=== PATIENT | female | born 1945 | race African-American/Black ===

== ENCOUNTER 2020-03-29 18:43 | Emergency (ER) | payer OTHER ==
--- OUTSIDE RECORDS SUMMARY | 2020-03-29 18:48 | XMS REPORT | Continuity of Care Document ---
:[address] [facility] [place] [place] t Address 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 00:00: [facility] Hyperlipid Hyperlipid Problem Active [facility] emia emia 1-14 da 00:[facility]: [facility] Essential Essential Problem Active [place] hypertensi Hypertensi 1-14 da on on 00:00: [facility] Diverticul Diverticul Problem Active [facility] itis itis 1-14 da 00:00: [facility] Allergies, Adverse Reactions, Alerts Allergy Allergy Status Severity Reaction(s) Onset Inactive Treating Comm ents Source Name Type Date Date Clinician nitrogly DA Active U Unknown [facility] cerin 1- 00:00: 00 No Known [facility] Allergie 00:00: s 00 Social History Smoking Status Start Date Stop Date Source Former Smoker [facility] Medications Ordered Filled Start Stop Current Ordering Indication Dosage Frequency Signature Comments Components Source Medication Medication Date Date Medication? Clinician (SIG) Name Name Protonix 20 Protonix 20 No 1 Q1D Protonix [place] mg mg 20 mg da tablet,krystal tablet,krystal tablet,del [facility] yed release yed release ayed a l Take 1 Take 1 release Health tablet tablet Take 1 Outreac every day every day tablet h by oral by oral every day Prog stefano route. route. by oral route. Tradjenta 5 Tradjenta 5 No 1 Q1D Tradjenta [place] mg tablet mg tablet 5 mg da Take 1 Take 1 tablet [facility] tablet tablet Take 1 al every day every day tablet Hea lth by oral by oral every day Outr eac route. route. by oral h route. Program amlodipine amlodipine No 1 Q1D amlodipine [place] 10 mg 10 mg 10 mg da tablet Take tablet Take tablet [facility] 1 tablet 1 tablet Take 1 al every day every day tablet Hea lth by oral by oral every day Outr eac route. route. by oral h route. Program clonidine clonidine No 1 BID clonidine [place] HCl 0.3 mg HCl 0.3 mg HCl 0.3 mg da tablet Take tablet Take tablet [facility] 1 tablet 1 tablet Take 1 al twice a day twice a day tablet Health by oral by oral twice a Outrea c route. route. day by h oral Program route. Coreg 25 mg Coreg 25 mg No 1 BID Coreg 25 [place] tablet Take tablet Take mg tablet da 1 tablet 1 tablet Take 1 [facility] twice a day twice a day tablet al by oral by oral twice a Health route. route. day by Outreac oral h route. Program hydralazine hydralazine No 1 BID hydralazin [place] 50 mg 50 mg e 50 mg da tablet Take tablet Take tablet [facility] 1 tablet 1 tablet Take 1 al twice a day twice a day tablet Health by oral by oral twice a Outrea c route. route. day by h oral Program route. losartan losartan No 1 Q1D losartan [place] 100 mg 100 mg 100 mg da tablet Take tablet Take tablet [facility] 1 tablet 1 tablet Take 1 al every day every day tablet Hea lth by oral by oral every day Outr eac route. route. by oral h route. 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 Monitor Temp Source 2020-03-16 11:30:21 oral 02 Sat by Pulse 2020-03-16 11:30:21 97 /min Oximetry Body Mass Index 2020-03-16 11:30:21 36.0 Height 2020-03-16 11:30:21 170.18\S\67 Pulse Rate 2020-03-16 11:30:21 84 /min Pulse Strength 2020-03-16 11:30:21 Normal /min Pulse Assessment 2020-03-16 11:30:21 Palpation /min Method Respiratory Rate 2020-03-16 11:30:21 19 /min Respiratory Depth 2020-03-16 11:30:21 Normal /min Respiratory Effort 2020-03-16 11:30:21 Spontaneous /min Respiratory Pattern 2020-03-16 11:30:21 Normal /min Temperature 2020-03-16 11:30:21 37.2\S\98.9 Weight 2020-03-16 11:30:21 083183\S\3680.132 Weight Measurement 2020-03-16 11:30:21 [facility] Initial DRG Weight: 2020-03-16 11:30:21 0.7385 Working DRG Weight: 2020-03-16 11:30:21 0.7385 UM Templates 2020-03-16 11:30:21 Y Utilized Initial DRG Weight: 2020-03-12 06:52:07 0.7385 Working DRG Weight: 2020-03-12 06:52:07 0.7385 UM Templates 2020-03-12 06:52:07 Y Utilized Have you Lost Weight 2020-03-12 06:52:07 No Without Trying in the Past 6 Months? Monitor Temp Source 2020-03-12 06:52:07 oral 02 Sat by Pulse 2020-03-12 06:52:07 97 /min Oximetry Body Mass Index 2020-03-12 06:52:07 36.0 Height 2020-03-12 06:52:07 170.18\S\67 Pulse Rate 2020-03-12 06:52:07 84 /min Pulse Strength 2020-03-12 06:52:07 Normal /min Pulse Assessment 2020-03-12 06:52:07 Palpation /min Method Respiratory Rate 2020-03-12 06:52:07 19 /min Respiratory Depth 2020-03-12 06:52:07 Normal /min Respiratory Effort 2020-03-12 06:52:07 Spontaneous /min Respiratory Pattern 2020-03-12 06:52:07 Normal /min Temperature 2020-03-12 06:52:07 37.2\S\98.9 Weight 2020-03-12 06:52:07 785258\S\3680.132 Weight Measurement 2020-03-12 06:52:07 Built in Bedscale Method Respiratory Rate 2020-03-08 09:55:22 19 /min Respiratory Depth 2020-03-08 09:55:22 Normal /min Respiratory Effort 2020-03-08 09:55:22 Spontaneous /min Respiratory Pattern 2020-03-08 09:55:22 Normal /min Temperature 2020-03-08 09:55:22 37.2\S\98.9 Weight 2020-03-08 09:55:22 923280\S\3680.132 Weight Measurement 2020-03-08 09:55:22 Built in Bedscale Method Initial DRG Weight: 2020-03-08 09:55:22 0.7385 Working DRG Weight: 2020-03-08 09:55:22 0.7385 Have you Lost Weight 2020-03-08 09:55:22 No Without Trying in the Past 6 Months? Monitor Temp Source 2020-03-08 09:55:22 oral 02 Sat by Pulse 2020-03-08 09:55:22 97 /min Oximetry Body Mass Index 2020-03-08 09:55:22 36.0 Height 2020-03-08 09:55:22 170.18\S\67 Pulse Rate 2020-03-08 09:55:22 84 /min Pulse Strength 2020-03-08 09:55:22 Normal /min Pulse Assessment 2020-03-08 09:55:22 Palpation /min Method Initial DRG Weight: 2020-03-07 11:54:07 0.7385 Working DRG Weight: 2020-03-07 11:54:07 0.7385 Have you Lost Weight 2020-03-07 11:54:07 No Without Trying in the Past 6 Months? Monitor Temp Source 2020-03-07 11:54:07 oral 02 Sat by Pulse 2020-03-07 11:54:07 97 /min Oximetry Body Mass Index 2020-03-07 11:54:07 36.0 Height 2020-03-07 11:54:07 170.18\S\67 Pulse Rate 2020-03-07 11:54:07 84 /min Pulse Strength 2020-03-07 11:54:07 Normal /min Pulse Assessment 2020-03-07 11:54:07 Palpation /min Method Respiratory Rate 2020-03-07 11:54:07 19 /min Respiratory Depth 2020-03-07 11:54:07 Normal /min Respiratory Effort 2020-03-07 11:54:07 Spontaneous /min Respiratory Pattern 2020-03-07 11:54:07 Normal /min Temperature 2020-03-07 11:54:07 37.2\S\98.9 Weight 2020-03-07 11:54:07 733858\S\3680.132 Weight Measurement 2020-03-07 11:54:07 Built in Bedscale Method Initial DRG Weight: 2020-03-06 12:24:43 0.7385 Working DRG Weight: 2020-03-06 12:24:43 0.7385 Have you Lost Weight 2020-03-06 12:24:43 No Without Trying in the Past 6 Months? Monitor Temp Source 2020-03-06 12:24:43 oral 02 Sat by Pulse 2020-03-06 12:24:43 97 /min Oximetry Body Mass Index 2020-03-06 12:24:43 36.0 Height 2020-03-06 12:24:43 170.18\S\67 Pulse Rate 2020-03-06 12:24:43 84 /min Pulse Strength 2020-03-06 12:24:43 Normal /min Pulse Assessment 2020-03-06 12:24:43 Palpation /min Method Respiratory Rate 2020-03-06 12:24:43 19 /min Respiratory Depth 2020-03-06 12:24:43 Normal /min Respiratory Effort 2020-03-06 12:24:43 Spontaneous /min Respiratory Pattern 2020-03-06 12:24:43 Normal /min Temperature 2020-03-06 12:24:43 37.2\S\98.9 Weight 2020-03-06 12:24:43 197495\S\3680.132 Weight Measurement 2020-03-06 12:24:43 Built in Bedscale Method Initial DRG Weight: 2020-03-06 11:22:02 0.7385 Working DRG Weight: 2020-03-06 11:22:02 0.7385 Have you Lost Weight 2020-03-06 11:22:02 No Without Trying in the Past 6 Months? Monitor Temp Source 2020-03-06 11:22:02 oral 02 Sat by Pulse 2020-03-06 11:22:02 97 /min Oximetry Body Mass Index 2020-03-06 11:22:02 36.0 Height 2020-03-06 11:22:02 170.18\S\67 Pulse Rate 2020-03-06 11:22:02 84 /min Pulse Strength 2020-03-06 11:22:02 Normal /min Pulse Assessment 2020-03-06 11:22:02 Palpation /min Method Respiratory Rate 2020-03-06 11:22:02 19 /min Respiratory Depth 2020-03-06 11:22:02 Normal /min Respiratory Effort 2020-03-06 11:22:02 Spontaneous /min Respiratory Pattern 2020-03-06 11:22:02 Normal /min Temperature 2020-03-06 11:22:02 37.2\S\98.9 Weight 2020-03-06 11:22:02 662654\S\3680.132 Weight Measurement 2020-03-06 11:22:02 Built in Bedscale Method Have you Lost Weight 2020-03-06 01:10:14 No Without Trying in the Past 6 Months? 02 Sat by Pulse 2020-03-06 01:10:14 99 /min Oximetry Body Mass Index 2020-03-06 01:10:14 36.0 Height 2020-03-06 01:10:14 170.18\S\67 Pulse Rate 2020-03-06 01:10:14 93 /min Pulse Strength 2020-03-06 01:10:14 Normal /min Pulse Assessment 2020-03-06 01:10:14 Palpation /min Method Respiratory Rate 2020-03-06 01:10:14 17 /min Respiratory Effort 2020-03-06 01:10:14 Spontaneous /min Temperature 2020-03-06 01:10:14 37.0\S\98.6 Weight 2020-03-06 01:10:14 268089\S\3680.132 Weight Measurement 2020-03-06 01:10:14 Built in Bedscale Method 02 Sat by Pulse 2020-03-05 17:49:50 93 /min Oximetry Body Mass Index 2020-03-05 17:49:50 36.0 Height 2020-03-05 17:49:50 170.18\S\67 Pulse Rate 2020-03-05 17:49:50 89 /min Pulse Strength 2020-03-05 17:49:50 Normal /min Pulse Assessment 2020-03-05 17:49:50 Palpation /min Method Respiratory Rate 2020-03-05 17:49:50 17 /min Weight 2020-03-05 17:49:50 853487.245\S\3680 02 Sat by Pulse 2020-03-05 17:17:39 93 /min Oximetry Body Mass Index 2020-03-05 17:17:39 36.0 Height 2020-03-05 17:17:39 170.18\S\67 Pulse Rate 2020-03-05 17:17:39 89 /min Pulse Strength 2020-03-05 17:17:39 Normal /min Pulse Assessment 2020-03-05 17:17:39 Palpation /min Method Respiratory Rate 2020-03-05 17:17:39 17 /min Weight 2020-03-05 17:17:39 136905.245\S\3680 02 Sat by Pulse 2020-03-05 17:15:36 93 /min Oximetry Body Mass Index 2020-03-05 17:15:36 36.0 Height 2020-03-05 17:15:36 170.18\S\67 Pulse Rate 2020-03-05 17:15:36 89 /min Pulse Strength 2020-03-05 17:15:36 Normal /min Pulse Assessment 2020-03-05 17:15:36 Palpation /min Method Respiratory Rate 2020-03-05 17:15:36 17 /min Weight 2020-03-05 17:15:36 030107.245\S\3680 WEIGHT 2020-03-05 11:56:00 104.33 kg 02 Sat by Pulse 2020-03-05 09:04:08 97 /min Oximetry Body Mass Index 2020-03-05 09:04:08 36.0 Height 2020-03-05 09:04:08 170.18\S\67 Pulse Rate 2020-03-05 09:04:08 74 /min Respiratory Rate 2020-03-05 09:04:08 18 /min Weight 2020-03-05 09:04:08 061798.245\S\3680 Body Mass Index 2020-03-05 07:04:17 36.0 Height 2020-03-05 07:04:17 170.18\S\67 Weight 2020-03-05 07:04:17 347431.245\S\3680 Body Mass Index 2020-03-05 06:59:02 36.0 Height 2020-03-05 06:59:02 170.18\S\67 Weight 2020-03-05 06:59:02 496238.245\S\3680 Body Mass Index 2020-03-05 06:53:56 36.0 Height 2020-03-05 06:53:56 170.18\S\67 Weight 2020-03-05 06:53:56 145879.245\S\3680 Body Mass Index 2020-03-04 16:48:40 36.0 Height 2020-03-04 16:48:40 170.18\S\67 Weight 2020-03-04 16:48:40 316088.245\S\3680 Body Mass Index 2020-03-04 16:48:09 36.0 Height 2020-03-04 16:48:09 170.18\S\67 Weight 2020-03-04 16:48:09 394644.245\S\3680 Body Mass Index 2020-03-04 13:35:43 36.0 Height 2020-03-04 13:35:43 170.18\S\67 Weight 2020-03-04 13:35:43 855679.245\S\3680 Body Mass Index 2020-03-04 12:37:58 36.0 Height 2020-03-04 12:37:58 170.18\S\67 Weight 2020-03-04 12:37:58 680131.245\S\3680 WEIGHT 2020-03-04 12:37:00 104.844483 kg HEIGHT 2020-03-04 12:37:00 170.18 cm Procedures Procedure Date / Time Performed Performing Clinician [facility] e unlisted imaging order 2020-02-19 00:00:00 [place] [facility] US, abdomen 2020-02-19 00:00:00 [place] [facility] Back Surgery 1998-02-05 00:00:00 [place] [facility] Plan of Care Planned Activity Planned Date Details Comments Source Diagnostic Test 2020-02-19 bacterial vaginosis [place] [facility] P[facility] 00:00:00 + vaginitis panel, Health [facility] [place] vaginal [code = Program bacterial vaginosis + vaginitis panel, vaginal] Diagnostic Test 2020-02-19 culture, urine [place] [facility] P[facility] 00:00:00 [code = culture, Health Outr each urine] Program Encounters Start End Encounter Admission Attending Care Care Encounter Source Date/Time Date/Time Type Type Clinicians Facility Department ID 2020-03-02 2020-03-02 Emergency E KRYSTIN [facility] [id number] [facility] 17:48:00 19:10:00 [facility] 2020-03-02 2020-03-02 Outpatient E CHIANG, MARCIE [facility] [id number] [facility] 09:32:00 14:00:00 [facility] [place] 2020-02-19 2020-02-19 Ana SALEH [place] - [id number] Telma fuller 00:00:00 00:00:00 Ana María Culver, [facility]: [address] THERESE al Parmjite F N, CMA [facility] [phone] Stephie garcia , Ph. 2020-02-17 2020-02-17 Outpatient E ALICIA TATUM [facility] [id number] [facility] 10:37:00 13:46:00 [facility] [place] 2019-12-17 2019-12-19 Outpatient E HAILY [facility] TELE [id number] [facility] 15:09:00 11:33:00 [facility] 2018-11-27 2018-12-01 Inpatient Satish JOHANSEN [facility] [id number] [facility] 16:43:00 15:30:00 [facility] Results Test Description Test Time Test Comments Results Result Comments Source TROPONIN I 2020-03-02 18:48:00 Test Item Value Reference Range Interpretation Comme nts TROPONIN I (test code = A84) 0.029 ng/mL 0.000-0.045 URINALYSIS W/O MICROSCOPICOW2020-03-02 13:07:00 Test Item Value Reference Range Interpretation Comments COLOR (test code = YELLOW YELLOW COLU) CLARITY (test code = CLEAR CLEAR CLA) GLUCOSE UR (test NEGATIVE NEGATIVE code = UA GLUCOSE) BILI UR (test code = NEGATIVE NEGATIVE BILE) KETONES UR (test NEGATIVE NEGATIVE code = AFUA) SP GRAVITY (test 1.015 1.005-1.030 code = SPGR) PH UR (test code = 7.0 4.5-8.0 PH) PROTEIN UR (test NEGATIVE NEGATIVE code = PU) NITRITE UR (test NEGATIVE NEGATIVE code = NITRITE) UROBIL UR (test code 0.2 = GUROQ) UROBIL UR (test code UROBILINOGEN = GUROQC) REFERENCE RANGE 0.2 - 1.0 EU/dL BLOOD UR (test code NEGATIVE NEGATIVE = UA BLOOD) LEUK ES UR (test TRACE NEGATIVE A code = LEUK) GENERAL CHEMISTRY 13 *OW* [id number] 10:37:00 Test Item Value Reference Range Interpretation Comments GLUCOSE (test code = GGUL) 165 mg/dL 73-118 H BUN (test code = GBUN) 26 mg/dL 7-22 H CREATININE (test code = GCRE) 1.1 mg/dL 0.6-1.2 URIC ACID (test code = GUA) 6.3 mg/dL 2.2-6.6 CALCIUM (test code = GCL+) 9.4 mg/dL 8.0-10.3 ALBUMIN (test code = GALB) 4.3 g/dL 3.5-5.5 PROTEIN (test code = GTP) 8.5 g/dL 6.4-8.1 H ALT (test code = GALT) 16 U/L 10-47 AST (test code = JANNET) 24 U/L 11-38 ALK PHOS (test code = GALP) 80 U/L 42-141 BILI TOTAL (test code = GTBIL) 0.5 mg/dL 0.2-1.6 GGT (test code = GGGT) 24 U/L 5-65 AMYLASE (test code = GAMY) 75 U/L 14-97 TROPONIN I OW2020-03-02 10:26:00 Test Item Value Reference Range Interpretation Comments TROPONIN I (test code = A84) <0.050 ng/mL 0.000-0.050 [employer] 8 Panel *OW* [id number] 10:19:00 Test Item Value Reference Range Interpretation Comments GLUCOSE (test code = GGUL) 165 mg/dL 73-118 H BUN (test code = GBUN) 24 mg/dL 7-22 H CREATININE (test code = GCRE) 1.0 mg/dL 0.6-1.2 CK TOTAL (test code = GCK) 81 U/L 30-190 SODIUM (test code = GNA+) 145 mmol/L 128-145 POTASSIUM (test code = GK+) 4.8 mmol/L 3.6-5.1 CHLORIDE (test code = GCL-) 102 mmol/L 98-108 TCO2 (test code = GTC02) 30 mmol/L 18-33 CBC (INCLUDES AUTOMATED DIFFERENTIAL) *2020-03-02 10:01:00 Test Item Value Reference Range Interpretation Comments WBC (test code = WBC) 10.0 10\S\3/uL 4.5-11.0 RBC (test code = RBC) 6.02 10\S\6/uL 3.80-5.80 H HGB (test code = HBG) 15.8 g/dL 12.0-15.5 H HCT (test code = HCT) 49.5 % 35.0-44.0 H MCV (test code = MCV) 82.3 fL 81.0-99.0 MCH (test code = MCH) 26.2 pg 27.0-31.0 L MCHC (test code = MCHC) 31.9 g/dL 32.0-36.0 L RDW (test code = RDW) 14.3 % 11.5-14.5 PLT (test code = PLT) 288 10\S\3/uL 130-400 MPV (test code = OMPV) 8.8 fL 6.2-10.2 NEUTROP # (test code = NE#) 7.0 10\S\3/uL 1.6-8.0 LYMPH # (test code = LY#) 2.0 10\S\3/uL 1.1-3.5 MID # (test code = GMID#) 1.0 10\S\3/uL 0.0-1.1 GRAN % (test code = GRA%) 69.9 % 35.0-73.0 LYMPH % (test code = GLY%) 19.7 % 20.0-55.0 L MID % (test code = GMID%) 10.4 % 0.0-10.0 H BRAIN NATRIURETIC PEPTIDE OW2020-02-17 12:00:00 Test Item Value Reference Range Interpretation Comments BNP (test code = OBNP) 68 pg/mL <=100 GENERAL CHEMISTRY 13 *OW* [id number] 11:44:00 Test Item Value Reference Range Interpretation Comments GLUCOSE (test code = GGUL) 146 mg/dL 73-118 H BUN (test code = GBUN) 16 mg/dL 7-22 CREATININE (test code = GCRE) 0.8 mg/dL 0.6-1.2 URIC ACID (test code = GUA) 5.0 mg/dL 2.2-6.6 CALCIUM (test code = GCL+) 9.3 mg/dL 8.0-10.3 ALBUMIN (test code = GALB) 4.1 g/dL 3.5-5.5 PROTEIN (test code = GTP) 7.2 g/dL 6.4-8.1 ALT (test code = GALT) 14 U/L 10-47 AST (test code = JANNET) 19 U/L 11-38 ALK PHOS (test code = GALP) 78 U/L 42-141 BILI TOTAL (test code = GTBIL) 0.5 mg/dL 0.2-1.6 GGT (test code = GGGT) 20 U/L 5-65 AMYLASE (test code = GAMY) 62 U/L 14-97 TROPONIN I OW2020-02-17 11:40:00 Test Item Value Reference Range Interpretation Comments TROPONIN I (test code = A84) <0.050 ng/mL 0.000-0.050 URINALYSIS W/O MICROSCOPICOW2020-02-17 11:34:00 Test Item Value Reference Range Interpretation Comments COLOR (test code = Yellow YELLOW COLU) CLARITY (test code = Clear CLEAR CLA) GLUCOSE UR (test Negative NEGATIVE code = UA GLUCOSE) BILI UR (test code = Negative NEGATIVE BILE) KETONES UR (test Negative NEGATIVE code = AFUA) SP GRAVITY (test 1.020 1.005-1.030 code = SPGR) PH UR (test code = 6.0 4.5-8.0 PH) PROTEIN UR (test Negative NEGATIVE code = PU) NITRITE UR (test Negative NEGATIVE code = NITRITE) UROBIL UR (test code 0.2 E.U./dL = GUROQ) UROBIL UR (test code UROBILINOGEN = GUROQC) REFERENCE RANGE 0.2 - 1.0 EU/dL BLOOD UR (test code Negative NEGATIVE = UA BLOOD) LEUK ES UR (test Negative NEGATIVE code = LEUK) METLA 12 PANEL *OW* [id number] 11:31:00 Test Item Value Reference Range Interpretation Comments ALBUMIN (test code = GALB) 4.0 g/dL 3.5-5.5 GLUCOSE (test code = GGUL) 143 mg/dL 73-118 H CREATININE (test code = GCRE) 0.7 mg/dL 0.6-1.2 BUN (test code = GBUN) 16 mg/dL 7-22 CALCIUM (test code = GCL+) 9.3 mg/dL 8.0-10.3 SODIUM (test code = GNA+) 142 mmol/L 128-145 POTASSIUM (test code = GK+) 4.6 mmol/L 3.6-5.1 CHLORIDE (test code = GCL-) 103 mmol/L 98-108 TCO2 (test code = GTC02) 28 mmol/L 18-33 MAGNESIUM (test code = GMG+) 2.3 mg/dL 1.6-2.3 LACTATE (test code = STEVIE) 1.77 mmol/L 0.53-2.10 PHOSPHORUS (test code = OPHOS) 3.7 mg/dL 2.2-4.1 CBC (INCLUDES AUTOMATED DIFFERENTIAL) *2020-02-17 11:20:00 Test Item Value Reference Range Interpretation Comments WBC (test code = WBC) 7.8 10\S\3/uL 4.5-11.0 RBC (test code = RBC) 5.72 10\S\6/uL 3.80-5.80 HGB (test code = HBG) 15.0 g/dL 12.0-15.5 HCT (test code = HCT) 46.4 % 35.0-44.0 H MCV (test code = MCV) 81.1 fL 81.0-99.0 MCH (test code = MCH) 26.2 pg 27.0-31.0 L MCHC (test code = MCHC) 32.3 g/dL 32.0-36.0 RDW (test code = RDW) 14.4 % 11.5-14.5 PLT (test code = PLT) 251 10\S\3/uL 130-400 MPV (test code = OMPV) 9.1 fL 6.2-10.2 NEUTROP # (test code = NE#) 5.2 10\S\3/uL 1.6-8.0 LYMPH # (test code = LY#) 1.9 10\S\3/uL 1.1-3.5 MID # (test code = GMID#) 0.6 10\S\3/uL 0.0-1.1 GRAN % (test code = GRA%) 67.3 % 35.0-73.0 LYMPH % (test code = GLY%) 24.4 % 20.0-55.0 MID % (test code = GMID%) 8.3 % 0.0-10.0 BASIC METABOLIC [id number] 05:29:00 Test Item Value Reference Range Interpretation Comments GLUCOSE (test code = 106 mg/dL 75-100 H 06D) SODIUM (test code = 141 mmol/L 136-145 01A) POTASSIUM (test code = 4.0 mmol/L 3.6-5.1 01B) CHLORIDE (test code = 108 mmol/L 98-107 H 04A) CO2 (test code = 02A) 26 mmol/L 22-32 ANION GAP (test code = 11.0 mmol/L ANG) BUN (test code = 05D) 27 mg/dL 7-18 H CREATININE (test code 1.2 mg/dL 0.4-1.1 H = 03E) GFR (test code = GFR) 44 mL/min/1.73m\S\2 >=90 L GFR 51 mL/min/1.73m\S\2 >=90 L (test code = GFRAA) EGFR (test code = eGFR BY CKD-EPI EGFR) CALCULATION IS NOT RECOMMENDED FOR PATIENTS UNDER 18 YEARS OF AGE. BUN/CREA (test code = 22 12-20 H BCR) CALCIUM (test code = 8.6 mg/dL 8.3-9.5 09D) CBC (INCLUDES AUTOMATED DIFFERENTIAL)2019-12-19 05:11:00 Test Item Value Reference Range Interpretation Comments WBC (test code = WBC) 8.3 10\S\3/uL 4.5-11.0 RBC (test code = RBC) 4.95 10\S\6/uL 3.80-5.80 HGB (test code = HBG) 13.3 g/dL 12.0-15.5 HCT (test code = HCT) 40.6 % 35.0-44.0 MCV (test code = MCV) 82.0 fL 81.0-99.0 MCH (test code = MCH) 26.9 pg 27.0-31.0 L MCHC (test code = MCHC) 32.8 g/dL 32.0-36.0 RDW (test code = RDW) 14.9 % 11.5-14.5 H PLT (test code = PLT) 231 10\S\3/uL 130-400 MPV (test code = MPV) 10.3 fL 9.4-12.4 NEUTROP # (test code = NE#) 4.3 10\S\3/uL 1.6-8.0 LYMPH # (test code = LY#) 2.8 10\S\3/uL 1.1-3.5 MONOCYTE # (test code = MO#) 0.8 10\S\3/uL 0.0-1.1 EOSINOPH # (test code = EO#) 0.2 10\S\3/uL 0.0-0.7 BASOPHIL # (test code = BA#) 0.0 10\S\3/uL 0.0-0.3 IG # (test code = IG#) 0.02 10\S\3/uL 0.00-0.06 NRBC # (test code = NRBC#) 0.00 10\S\3/uL 0.00-0.01 NEUTROPH % (test code = NE%) 52.6 % 35.0-73.0 LYMPH % (test code = LY%) 34.3 % 20.0-55.0 MONO % (test code = MO%) 9.9 % 2.5-10.0 EOSINOPH % (test code = EO%) 2.8 % 0.0-5.0 BASOPHIL % (test code = BA%) 0.2 % 0.0-2.0 IG % (test code = IG%) 0.2 % 0.0-0.8 NRBC% (test code = NRBC%) 0.0 % 0.0-0.2 MANDIFF (test code = MDIFF) NO RBC MORPH (test code = RBCMOR) NORMAL GLUCOMETER GLUCOSE- LAB USE [id number] 04:51:00 Test Item Value Reference Range Interpretation Comments GLUCOMETER (test 119 mg/dL 70-100 H CLEANED MET ERDAILY code = GMG) MAINTENANCEMete r ID: [id number] tor: [id number] [facility] GLU[facility]SE- LAB USE [id number] 19:51:00 Test Item Value Reference Range Interpretation Comments GLUCOMETER (test 112 mg/dL 70-100 H CLEANED MET ERDAILY code = GMG) MAINTENANCEMete r ID: [id number] tor: [id number] [facility] GLUCOMET[facility] GLUCOSE- LAB USE [id number] 16:28:00 Test Item Value Reference Range Interpretation Comments GLUCOMETER (test code = 126 mg/dL 70-100 H Mete r ID: GMG) [id number] tor: [id number] [place] [place] GLUCOMETER GLUCOSE- LAB USE [id number] 12:07:00 Test Item Value Reference Range Interpretation Comments GLUCOMETER (test code = 133 mg/dL 70-100 H Mete r ID: GMG) [id number] tor: [id number] [place] GLUCOMETER GLUCOSE- LAB USE [id number] 05:54:00 Test Item Value Reference Range Interpretation Comments GLUCOMETER (test code 160 mg/dL 70-100 H CLEANE D METERMeter ID: = GMG) [id number] tor: [id number] BASIC METABOLIC [id number] 03:32:00 Test Item Value Reference Range Interpretation Comments GLUCOSE (test code = 116 mg/dL 75-100 H 06D) SODIUM (test code = 143 mmol/L 136-145 01A) POTASSIUM (test code = 3.7 mmol/L 3.6-5.1 01B) CHLORIDE (test code = 111 mmol/L 98-107 H 04A) CO2 (test code = 02A) 26 mmol/L 22-32 ANION GAP (test code = 9.7 mmol/L ANG) BUN (test code = 05D) 13 mg/dL 7-18 CREATININE (test code 0.8 mg/dL 0.4-1.1 = 03E) GFR (test code = GFR) 73 mL/min/1.73m\S\2 >=90 L GFR 85 mL/min/1.73m\S\2 >=90 L (test code = GFRAA) EGFR (test code = eGFR BY CKD-EPI EGFR) CALCULATION IS NOT RECOMMENDED FOR PATIENTS UNDER 18 YEARS OF AGE. BUN/CREA (test code = 16 12-20 BCR) CALCIUM (test code = 8.7 mg/dL 8.3-9.5 09D) CARDIAC [id number] 03:26:00 Test Item Value Reference Range Interpretation Comments TROPONIN I (test code = A84) <0.015 ng/mL 0.000-0.045 CBC (INCLUDES AUTOMATED DIFFERENTIAL)2019-12-18 03:18:00 Test Item Value Reference Range Interpretation Comments WBC (test code = WBC) 8.5 10\S\3/uL 4.5-11.0 RBC (test code = RBC) 5.25 10\S\6/uL 3.80-5.80 HGB (test code = HBG) 14.1 g/dL 12.0-15.5 HCT (test code = HCT) 43.5 % 35.0-44.0 MCV (test code = MCV) 82.9 fL 81.0-99.0 MCH (test code = MCH) 26.9 pg 27.0-31.0 L MCHC (test code = MCHC) 32.4 g/dL 32.0-36.0 RDW (test code = RDW) 14.6 % 11.5-14.5 H PLT (test code = PLT) 246 10\S\3/uL 130-400 MPV (test code = MPV) 10.6 fL 9.4-12.4 NEUTROP # (test code = NE#) 4.6 10\S\3/uL 1.6-8.0 LYMPH # (test code = LY#) 2.8 10\S\3/uL 1.1-3.5 MONOCYTE # (test code = MO#) 0.8 10\S\3/uL 0.0-1.1 EOSINOPH # (test code = EO#) 0.2 10\S\3/uL 0.0-0.7 BASOPHIL # (test code = BA#) 0.0 10\S\3/uL 0.0-0.3 IG # (test code = IG#) 0.02 10\S\3/uL 0.00-0.06 NRBC # (test code = NRBC#) 0.00 10\S\3/uL 0.00-0.01 NEUTROPH % (test code = NE%) 54.1 % 35.0-73.0 LYMPH % (test code = LY%) 33.3 % 20.0-55.0 MONO % (test code = MO%) 9.3 % 2.5-10.0 EOSINOPH % (test code = EO%) 2.7 % 0.0-5.0 BASOPHIL % (test code = BA%) 0.4 % 0.0-2.0 IG % (test code = IG%) 0.2 % 0.0-0.8 NRBC% (test code = NRBC%) 0.0 % 0.0-0.2 MANDIFF (test code = MDIFF) NO RBC MORPH (test code = RBCMOR) NORMAL CARDIAC [id number] 21:08:00 Test Item Value Reference Range Interpretation Comments TROPONIN I (test code = A84) <0.015 ng/mL 0.000-0.045 GLUCOMETER GLUCOSE- LAB USE [id number] 19:46:00 Test Item Value Reference Range Interpretation Comments GLUCOMETER (test code 125 mg/dL 70-100 H CLEANE D METERMeter ID: = GMG) [id number] tor: [address]IGUE[address] PRO TIME AND [id number] 16:25:00 Test Item Value Reference Range Interpretation Comments PT (test code = 11.0 s 9.8-13.6 TT) INR (test code = 1.0 INR) INRH (test code = SUGGESTED INRH) THERAPEUTIC RANGE FOR INR: 2.5 - 3.5 For Patients with Prosthetic Valves or Patients with recurrent Thromboembolic Events 2.0 - 3.0 For Most Other Applications PTT (test code = 32.2 s 20.2-38.0 PTT) PTTH (test code = To monitor the PTTH) effectiveness of heparin, we offer the Anti-Xa (Heparin Assay). It can be used for either unfractionated or LMW Heparin. Order Code is ANTI-XA [id number] 16:25:00 Test Item Value Reference Range Interpretation Comments D-DIMER (test code = 344 ng/mL D-DU 0-234 H DDI) D-DIMER COMMENT (test *Level to rule out code = DDCOM) DVT or PE: <235 ng/mL D-DU* [id number] 16:07:00 Test Item Value Reference Range Interpretation Comments FERRITIN (test code = A19) 34.7 ng/mL 8.0-252.0 BRAIN NATRIURETIC [id number] 15:54:00 Test Item Value Reference Range Interpretation Comments proBNP (test code = PBNP) 919 pg/mL 0-125 H LDH-LACTIC [id number] 15:52:00 Test Item Value Reference Range Interpretation Comments LDH (test code = 33A) 221 IU/L 84-246 [id number] 15:47:00 Test Item Value Reference Range Interpretation Comments COLOR (test code = COLU) YELLOW YELLOW CLARITY (test code = CLA) CLEAR CLEAR GLUCOSE UR (test code = UA GLUCOSE) NEGATIVE NEGATIVE BILI UR (test code = BILE) NEGATIVE NEGATIVE KETONES UR (test code = AFUA) NEGATIVE NEGATIVE SP GRAVITY (test code = SPGR) 1.013 1.005-1.030 PH UR (test code = PH) 7.0 4.5-8.0 PROTEIN UR (test code = PU) NEGATIVE NEGATIVE UROBIL UR (test code = UROQ) 0.2 EU/dL 0.2-1.0 NITRITE UR (test code = NITRITE) NEGATIVE NEGATIVE BLOOD UR (test code = UA BLOOD) NEGATIVE NEGATIVE LEUK ES UR (test code = LEUK) NEGATIVE NEGATIVE AUAM (test code = AUAM) NO NO TROPONIN [id number] 15:46:00 Test Item Value Reference Range Interpretation Comments TROPONIN I (test code = A84) <0.015 ng/mL 0.000-0.045 SARS-CoV (RAPID ANTIGEN)2019-12-17 15:43:00 Test Item Value Reference Range Interpretation Comments SARS-CoV (ANTIGEN) NEGATIVE NEGATIVE (test code = COVAG) COVID AG (test This test has been code = COVAGC) marketed under the FDA Emergency Use Authorization (EUA) to meet challenges of the COVID-19 pandemic. The validation standards normally enforced by the FDA and the [employer] (CAP) are more stringent than those required for this test. Therefore, the result should be interpreted with caution and close attention to other clinical and epidemiological data AMYLASE AND [id number] 15:43:00 Test Item Value Reference Range Interpretation Comments AMYLASE (test code = 10A) 66 U/L 28-100 LIPASE (test code = 60A) 104 IU/L 73-393 COMPREHENSIVE METABOLIC [id number] 15:43:00 Test Item Value Reference Range Interpretation Comments GLUCOSE (test code = 100 mg/dL 75-100 06D) SODIUM (test code = 143 mmol/L 136-145 01A) POTASSIUM (test code = 4.3 mmol/L 3.6-5.1 01B) CHLORIDE (test code = 108 mmol/L 98-107 H 04A) CO2 (test code = 02A) 29 mmol/L 22-32 ANION GAP (test code = 10.3 mmol/L ANG) BUN (test code = 05D) 13 mg/dL 7-18 CREATININE (test code 0.9 mg/dL 0.4-1.1 = 03E) GFR (test code = GFR) 62 mL/min/1.73m\S\2 >=90 L GFR 72 mL/min/1.73m\S\2 >=90 L (test code = GFRAA) EGFR (test code = eGFR BY CKD-EPI EGFR) CALCULATION IS NOT RECOMMENDED FOR PATIENTS UNDER 18 YEARS OF AGE. BUN/CREA (test code = 14 12-20 BCR) CALCIUM (test code = 8.9 mg/dL 8.3-9.5 09D) BILI TOTAL (test code 0.3 mg/dL 0.2-1.0 = 11A) PROTEIN (test code = 7.4 g/dL 6.4-8.2 07D) ALBUMIN (test code = 3.7 g/dL 3.5-4.8 08D) GLOBULIN (test code = 3.7 g/dL 1.5-3.8 GLB) ALB/GLOB (test code = 1.0 1.0-2.6 AGRR) ALK PHOS (test code = 96 IU/L 42-121 35A) AST (test code = 30A) 18 IU/L <=42 ALT (test code = 31A) 37 IU/L <=78 C-REACTIVE PROTEIN [id number] 15:40:00 Test Item Value Reference Range Interpretation Comments CRP QUANT (test code <2.9 mg/L 0.0-2.9 = CRPQ) Method Change (test Please note the code = METHOD) change in Method and the reference range [id number] 15:38:00 Test Item Value Reference Range Interpretation Comments MAGNESIUM (test code = 48A) 2.5 mg/dL 1.8-2.4 H CBC (INCLUDES AUTOMATED DIFFERENTIAL)2019-12-17 15:33:00 Test Item Value Reference Range Interpretation Comments WBC (test code = WBC) 7.2 10\S\3/uL 4.5-11.0 RBC (test code = RBC) 5.56 10\S\6/uL 3.80-5.80 HGB (test code = HBG) 15.0 g/dL 12.0-15.5 HCT (test code = HCT) 45.8 % 35.0-44.0 H MCV (test code = MCV) 82.4 fL 81.0-99.0 MCH (test code = MCH) 27.0 pg 27.0-31.0 MCHC (test code = MCHC) 32.8 g/dL 32.0-36.0 RDW (test code = RDW) 14.6 % 11.5-14.5 H PLT (test code = PLT) 277 10\S\3/uL 130-400 MPV (test code = MPV) 10.3 fL 9.4-12.4 NEUTROP # (test code = NE#) 3.8 10\S\3/uL 1.6-8.0 LYMPH # (test code = LY#) 2.4 10\S\3/uL 1.1-3.5 MONOCYTE # (test code = MO#) 0.7 10\S\3/uL 0.0-1.1 EOSINOPH # (test code = EO#) 0.3 10\S\3/uL 0.0-0.7 BASOPHIL # (test code = BA#) 0.0 10\S\3/uL 0.0-0.3 IG # (test code = IG#) 0.03 10\S\3/uL 0.00-0.06 NRBC # (test code = NRBC#) 0.00 10\S\3/uL 0.00-0.01 NEUTROPH % (test code = NE%) 52.7 % 35.0-73.0 LYMPH % (test code = LY%) 33.5 % 20.0-55.0 MONO % (test code = MO%) 9.6 % 2.5-10.0 EOSINOPH % (test code = EO%) 3.5 % 0.0-5.0 BASOPHIL % (test code = BA%) 0.3 % 0.0-2.0 IG % (test code = IG%) 0.4 % 0.0-0.8 NRBC% (test code = NRBC%) 0.0 % 0.0-0.2 MANDIFF (test code = MDIFF) NO RBC MORPH (test code = RBCMOR) NORMAL BLOOD [id number] 07:29:00 Test Item Value Reference Range Interpretation Comments Culture Observations (test NO GROWTH AFTER 5 code = COB1) DAYS GLUCOMETER GLUCOSE- LAB USE [id number] 12:15:00 Test Item Value Reference Range Interpretation Comments GLUCOMETER (test code = 118 mg/dL 70-100 H Mete r ID: GMG) [id number] tor: [id number] NIKOLAS GLUCOMETER GLUCOSE- LAB USE [id number] 06:31:00 Test Item Value Reference Range Interpretation Comments GLUCOMETER (test code = 193 mg/dL 70-100 H Mete r ID: GMG) [id number] tor: [address] LISSY GLUCOMETER GLUCOSE- LAB USE [id number] 20:29:00 Test Item Value Reference Range Interpretation Comments GLUCOMETER (test code = 154 mg/dL 70-100 H Mete r ID: GMG) [id number] tor: [address] V[address] LISSY GLUCOMETER GLUCOSE- LAB USE [id number] 15:59:00 Test Item Value Reference Range Interpretation Comments GLUCOMETER (test code 103 mg/dL 70-100 H CLEANE D METERMeter ID: = GMG) [id number] tor: [address] FR[address] NIKOLAS GLUCOMETER GLUCOSE- LAB USE [id number] 11:15:00 Test Item Value Reference Range Interpretation Comments GLUCOMETER (test code 218 mg/dL 70-100 H CLEANE D METERMeter ID: = GMG) [id number] tor: [address] A BASIC METABOLIC [id number] 05:30:00 Test Item Value Reference Range Interpretation Comments GLUCOSE (test code = 06D) 121 mg/dL 75-100 H SODIUM (test code = 01A) 140 mmol/L 136-145 POTASSIUM (test code = 01B) 4.1 mmol/L 3.6-5.1 CHLORIDE (test code = 04A) 105 mmol/L 98-107 CO2 (test code = 02A) 27 mmol/L 22-32 ANION GAP (test code = ANG) 12.1 mmol/L BUN (test code = 05D) 30 mg/dL 7-18 H CREATININE (test code = 03E) 1.6 mg/dL 0.4-1.1 H BUN/CREA (test code = BCR) 19 12-20 CALCIUM (test code = 09D) 7.8 mg/dL 8.3-9.5 L CBC (INCLUDES AUTOMATED DIFFERENTIAL)2018-11-30 04:59:00 Test Item Value Reference Range Interpretation Comments WBC (test code = WBC) 9.2 10\S\3/uL 4.5-11.0 RBC (test code = RBC) 5.37 10\S\6/uL 3.80-5.80 HGB (test code = HBG) 13.8 g/dL 12.0-15.5 HCT (test code = HCT) 44.4 % 35.0-44.0 H MCV (test code = MCV) 82.7 fL 81.0-99.0 MCH (test code = MCH) 25.7 pg 27.0-31.0 L MCHC (test code = MCHC) 31.1 g/dL 32.0-36.0 L RDW (test code = RDW) 15.9 % 11.5-14.5 H PLT (test code = PLT) 238 10\S\3/uL 130-400 MPV (test code = MPV) 11.3 fL 9.4-12.4 NEUTROP # (test code = NE#) 4.8 10\S\3/uL 1.6-8.0 LYMPH # (test code = LY#) 3.0 10\S\3/uL 1.1-3.5 MONOCYTE # (test code = MO#) 1.0 10\S\3/uL 0.0-1.1 EOSINOPH # (test code = EO#) 0.3 10\S\3/uL 0.0-0.7 BASOPHIL # (test code = BA#) 0.1 10\S\3/uL 0.0-0.3 IG # (test code = IG#) 0.02 10\S\3/uL 0.00-0.06 NRBC # (test code = NRBC#) 0.00 10\S\3/uL 0.00-0.01 NEUTROPH % (test code = NE%) 52.5 % 35.0-73.0 LYMPH % (test code = LY%) 32.3 % 20.0-55.0 MONO % (test code = MO%) 11.3 % 2.5-10.0 H EOSINOPH % (test code = EO%) 3.0 % 0.0-5.0 BASOPHIL % (test code = BA%) 0.7 % 0.0-2.0 IG % (test code = IG%) 0.2 % 0.0-0.8 NRBC% (test code = NRBC%) 0.0 % 0.0-0.2 MANDIFF (test code = MDIFF) NO NO RBC MORPH (test code = RBCMOR) NORMAL GLUCOMETER GLUCOSE- LAB USE [id number] 21:10:00 Test Item Value Reference Range Interpretation Comments GLUCOMETER (test code = 192 mg/dL 70-100 H Mete r ID: GMG) [id number] tor: [address] BARTOLOME GLUCOMETER GLUCOSE- LAB USE [id number] 16:58:00 Test Item Value Reference Range Interpretation Comments GLUCOMETER (test code 118 mg/dL 70-100 H CLEANE D METERMeter ID: = GMG) [id number] tor: [address] A GLUCOMETER GLUCOSE- LAB USE [id number] 11:16:00 Test Item Value Reference Range Interpretation Comments GLUCOMETER (test code 199 mg/dL 70-100 H CLEANE D METERMeter ID: = GMG) [id number] tor: [address] A BASIC METABOLIC [id number] 05:45:00 Test Item Value Reference Range Interpretation Comments GLUCOSE (test code = 06D) 136 mg/dL 75-100 H SODIUM (test code = 01A) 139 mmol/L 136-145 POTASSIUM (test code = 01B) 3.4 mmol/L 3.6-5.1 L CHLORIDE (test code = 04A) 104 mmol/L 98-107 CO2 (test code = 02A) 27 mmol/L 22-32 ANION GAP (test code = ANG) 11.4 mmol/L BUN (test code = 05D) 16 mg/dL 7-18 CREATININE (test code = 03E) 1.0 mg/dL 0.4-1.1 BUN/CREA (test code = BCR) 16 12-20 CALCIUM (test code = 09D) 8.4 mg/dL 8.3-9.5 CBC (INCLUDES AUTOMATED DIFFERENTIAL)2018-11-29 05:36:00 Test Item Value Reference Range Interpretation Comments WBC (test code = WBC) 9.1 10\S\3/uL 4.5-11.0 RBC (test code = RBC) 5.66 10\S\6/uL 3.80-5.80 HGB (test code = HBG) 14.6 g/dL 12.0-15.5 HCT (test code = HCT) 44.4 % 35.0-44.0 H MCV (test code = MCV) 78.4 fL 81.0-99.0 L MCH (test code = MCH) 25.8 pg 27.0-31.0 L MCHC (test code = MCHC) 32.9 g/dL 32.0-36.0 RDW (test code = RDW) 15.9 % 11.5-14.5 H PLT (test code = PLT) 302 10\S\3/uL 130-400 MPV (test code = MPV) 11.7 fL 9.4-12.4 NEUTROP # (test code = NE#) 5.0 10\S\3/uL 1.6-8.0 LYMPH # (test code = LY#) 2.8 10\S\3/uL 1.1-3.5 MONOCYTE # (test code = MO#) 1.0 10\S\3/uL 0.0-1.1 EOSINOPH # (test code = EO#) 0.2 10\S\3/uL 0.0-0.7 BASOPHIL # (test code = BA#) 0.0 10\S\3/uL 0.0-0.3 IG # (test code = IG#) 0.03 10\S\3/uL 0.00-0.06 NRBC # (test code = NRBC#) 0.00 10\S\3/uL 0.00-0.01 NEUTROPH % (test code = NE%) 54.9 % 35.0-73.0 LYMPH % (test code = LY%) 31.0 % 20.0-55.0 MONO % (test code = MO%) 11.2 % 2.5-10.0 H EOSINOPH % (test code = EO%) 2.3 % 0.0-5.0 BASOPHIL % (test code = BA%) 0.3 % 0.0-2.0 IG % (test code = IG%) 0.3 % 0.0-0.8 NRBC% (test code = NRBC%) 0.0 % 0.0-0.2 MANDIFF (test code = MDIFF) NO NO RBC MORPH (test code = RBCMOR) NORMAL GLUCOMETER GLUCOSE- LAB USE [id number] 20:39:00 Test Item Value Reference Range Interpretation Comments GLUCOMETER (test code = 135 mg/dL 70-100 H Mete r ID: GMG) [id number] tor: [address] BARTOLOME GLUCOMETER GLUCOSE- LAB USE [id number] 15:20:00 Test Item Value Reference Range Interpretation Comments GLUCOMETER (test code 132 mg/dL 70-100 H CLEANE D METERMeter ID: = GMG) [id number] tor: [address] S[address] NSON GLUCOMETER GLUCOSE- LAB USE [id number] 11:13:00 Test Item Value Reference Range Interpretation Comments GLUCOMETER (test code 159 mg/dL 70-100 H CLEANE D METERMeter ID: = GMG) [id number] tor: [address] SNEHA NSON CARDIAC [id number] 06:07:00 Test Item Value Reference Range Interpretation Comments TROPONIN I (test code = A84) 0.045 ng/mL 0.000-0.045 BASIC METABOLIC [id number] 05:56:00 Test Item Value Reference Range Interpretation Comments GLUCOSE (test code = 06D) 142 mg/dL 75-100 H SODIUM (test code = 01A) 140 mmol/L 136-145 POTASSIUM (test code = 01B) 3.5 mmol/L 3.6-5.1 L CHLORIDE (test code = 04A) 106 mmol/L 98-107 CO2 (test code = 02A) 25 mmol/L 22-32 ANION GAP (test code = ANG) 12.5 mmol/L BUN (test code = 05D) 12 mg/dL 7-18 CREATININE (test code = 03E) 0.8 mg/dL 0.4-1.1 BUN/CREA (test code = BCR) 16 12-20 CALCIUM (test code = 09D) 8.8 mg/dL 8.3-9.5 CBC (INCLUDES AUTOMATED DIFFERENTIAL)2018-11-28 05:51:00 Test Item Value Reference Range Interpretation Comments WBC (test code = WBC) 8.6 10\S\3/uL 4.5-11.0 RBC (test code = RBC) 5.55 10\S\6/uL 3.80-5.80 HGB (test code = HBG) 14.2 g/dL 12.0-15.5 HCT (test code = HCT) 43.3 % 35.0-44.0 MCV (test code = MCV) 78.0 fL 81.0-99.0 L MCH (test code = MCH) 25.6 pg 27.0-31.0 L MCHC (test code = MCHC) 32.8 g/dL 32.0-36.0 RDW (test code = RDW) 15.8 % 11.5-14.5 H PLT (test code = PLT) 276 10\S\3/uL 130-400 MPV (test code = MPV) 11.3 fL 9.4-12.4 NEUTROP # (test code = NE#) 5.5 10\S\3/uL 1.6-8.0 LYMPH # (test code = LY#) 2.0 10\S\3/uL 1.1-3.5 MONOCYTE # (test code = MO#) 0.8 10\S\3/uL 0.0-1.1 EOSINOPH # (test code = EO#) 0.1 10\S\3/uL 0.0-0.7 BASOPHIL # (test code = BA#) 0.0 10\S\3/uL 0.0-0.3 IG # (test code = IG#) 0.03 10\S\3/uL 0.00-0.06 NRBC # (test code = NRBC#) 0.00 10\S\3/uL 0.00-0.01 NEUTROPH % (test code = NE%) 64.4 % 35.0-73.0 LYMPH % (test code = LY%) 23.8 % 20.0-55.0 MONO % (test code = MO%) 9.7 % 2.5-10.0 EOSINOPH % (test code = EO%) 1.5 % 0.0-5.0 BASOPHIL % (test code = BA%) 0.2 % 0.0-2.0 IG % (test code = IG%) 0.4 % 0.0-0.8 NRBC% (test code = NRBC%) 0.0 % 0.0-0.2 MANDIFF (test code = MDIFF) NO NO RBC MORPH (test code = RBCMOR) NORMAL CARDIAC [id number] 00:41:00 Test Item Value Reference Range Interpretation Comments TROPONIN I (test code = A84) 0.046 ng/mL 0.000-0.045 H U/S VENOUS DOPPLER SHAHLA LOW EXT *OW*2018-11-27 15:13:07EXAMINATION: U/S VENOUS DOPPLER SHAHLA LOW EXT *OW*.LOCATION: S17.HISTORY: Swelling of limb, hypertensio n.COMPARISON: None.FINDINGS: Sonographic evaluation of bilateral lower extremities was performed from thecommon femoral veins to the popliteal trifurcations utilizing grayscale, pulseDoppler, and color flow imaging. The veins are normally compressible. There isnormal respiratory phasicity and augmentation demonstrated. Color flow isdemonstrated. The visualized proximal calf veins demonstrate flow on colorimaging.IMPRESSION: No evidence of deep venous thrombus in the visualized portions of the bilaterallower extremity.CT PE PROTOCOL *OW*2018-11-27 14:32:43CT CHEST WITH CONTRAST, PE PROTOCOL:Location code: [id number] HISTORY: Shortness of breath elevated d-dimerCOMPARISON: NoneTECHNIQUE: Following the administration of a timed IV contrast bolus, helicalCT of the chest was performed. Thin section axial, coronal, and sagittalimages were obtained. Oblique sagittal maximum intensity reformatted images ofthe pulmonary arteries were also obtained. One ormore of the following dosereduction techniques were used: Automated exposure control, adjustment of t Rebeca and or KV according to patient size, and/or utilization of iterativereconstruction technique. DLP: 1034.85 mGy-cm.FINDINGS: There is no filling defect within the pulmonary arteries to suggest pulmonaryembolus. The aorta is of normal caliber and contour. Mild central congestion noted with patchy bibasilar atelectasis along with mildpatchy right upper lobe infiltrate. No significant. EffusionsThere is no mediastinal adenopathy or mass. There is a small pericardialeffusion. Images through theupper abdomen are unremarkable.The bones, skin and surrounding soft tissues are unremarkable. IMPRESSION:1. Negative for PE2. Small pericardial effusion with mild congestion along with patchy bibasilaratelectasis and small right upper lobe infiltrate.XR CHEST 1 VIEW PORTABLE *OW*2018-11-27 13:10:56EXAMINATION: XR CHEST 1 VIEW PORTABLE *OW*.LOCATION: S17.HISTORY: Dyspnea.COMPARISON: None.FINDINGS:Examination is limited due to portable technique and patient body habitus.Cardiac silhouette/Mediastinal contour: Enlargement of cardiac silhouette.Atherosclerotic calcification of aortic arch. Left chest wall AICD.Lungs: No focal consolidation. No large pleural effusion. Pulmonary vascularcongestion.Osseous Structures: No acute osseous abnormalities.IMPRESSION: Pulmonary vascular congestion.URINALYSIS W/O MICROSCOPICOW2018-11-27 13:02:00 Test Item Value Reference Range Interpretation Comments COLOR (test code = PALE YELLOW YELLOW A COLU) CLARITY (test code = Clear CLEAR CLA) GLUCOSE UR (test Negative NEGATIVE code = UA GLUCOSE) BILI UR (test code = Negative NEGATIVE BILE) KETONES UR (test Negative NEGATIVE code = AFUA) SP GRAVITY (test 1.020 1.005-1.030 code = SPGR) PH UR (test code = 5.5 4.5-8.0 PH) PROTEIN UR (test 1+ NEGATIVE A code = PU) NITRITE UR (test Negative NEGATIVE code = NITRITE) UROBIL UR (test code 0.2 E.U./dL = GUROQ) UROBIL UR (test code UROBILINOGEN = GUROQC) REFERENCE RANGE 0.2 - 1.0 EU/dL BLOOD UR (test code Negative NEGATIVE = UA BLOOD) LEUK ES UR (test Negative NEGATIVE code = LEUK) D-DIMER TRIAGE OW2018-11-27 12:55:00 Test Item Value Reference Range Interpretation Comments D-DIMER (test code = 535 ng/mL D-DU <=599 GDDI) D-DIMER COMMENT (test *Level to rule out code = DDCOM) DVT or PE: <235 ng/mL D-DU* GENERAL CHEMISTRY 13 *OW* [id number] 12:52:00 Test Item Value Reference Range Interpretation Comments GLUCOSE (test code = GGUL) 151 mg/dL 73-118 H BUN (test code = GBUN) 14 mg/dL 7-22 CREATININE (test code = GCRE) 1.0 mg/dL 0.6-1.2 URIC ACID (test code = GUA) 5.8 mg/dL 2.2-6.6 CALCIUM (test code = GCL+) 9.2 mg/dL 8.0-10.3 ALBUMIN (test code = GALB) 3.8 g/dL 3.5-5.5 PROTEIN (test code = GTP) 6.3 g/dL 6.4-8.1 L ALT (test code = GALT) 35 U/L 10-47 AST (test code = JANNET) 28 U/L 11-38 ALK PHOS (test code = GALP) 80 U/L 42-141 BILI TOTAL (test code = GTBIL) 0.6 mg/dL 0.2-1.6 GGT (test code = GGGT) 31 U/L 5-65 AMYLASE (test code = GAMY) 45 U/L 14-97 TROPONIN I OW2018-11-27 12:45:00 Test Item Value Reference Range Interpretation Comments TROPONIN I (test code = A84) 0.000 ng/mL 0.000-0.045 BRAIN NATRIURETIC PROTEIN OW2018-11-27 12:44:00 Test Item Value Reference Range Interpretation Comments BNP (test code = OBNP) 185 pg/mL <=100 H CHEM8+ i-STAT OW2018-11-27 12:31:00 Test Item Value Reference Range Interpretation Comments SODIUM (test code = DAVID) 142 mmol/L 138-146 POTASSIUM (test code = KI) 4.4 mmol/L 3.5-4.9 CHLORIDE (test code = CLI) 106 mmol/L 98-109 CA IONIZED (test code = ICAI) 1.27 mmol/L 1.12-1.32 GLUCOSE (test code = GLUI) 152 mg/dL 75-100 H TCO2 (test code = TCO2) 26 mmol/L 24-29 BUN (test code = BUN1) 17 mg/dL 8-26 CREATININE (test code = CREAI) 0.9 mg/dL 0.6-1.3 ANION GAP (test code = GANG) 15.0 mmol/L HGB (test code = MHB) 13.6 g/dL 12.0-17.0 HCT (test code = MHCT) 40.0 % 38.0-51.0 CBC (INCLUDES AUTOMATED DIFFERENTIAL) *2018-11-27 12:29:00 Test Item Value Reference Range Interpretation Comments WBC (test code = WBC) 5.5 10\S\3/uL 4.5-11.0 RBC (test code = RBC) 5.09 10\S\6/uL 3.80-5.80 HGB (test code = HBG) 13.1 g/dL 12.0-15.5 HCT (test code = HCT) 42.2 % 35.0-44.0 MCV (test code = MCV) 83.0 fL 81.0-99.0 MCH (test code = MCH) 25.7 pg 27.0-31.0 L MCHC (test code = MCHC) 31.0 g/dL 32.0-36.0 L RDW (test code = RDW) 14.8 % 11.5-14.5 H PLT (test code = PLT) 272 10\S\3/uL 130-400 MPV (test code = OMPV) 9.0 fL 6.2-10.2 NEUTROP # (test code = NE#) 3.2 10\S\3/uL 1.6-8.0 LYMPH # (test code = LY#) 1.8 10\S\3/uL 1.1-3.5 MID # (test code = GMID#) 0.5 10\S\3/uL 0.0-1.1 GRA % (test code = GRA%) 58.3 % 35.0-73.0 LYMPH % (test code = GLY%) 32.3 % 20.0-55.0 MID % (test code = GMID%) 9.4 % 0.0-10.0 PROTHROMBIN TIME i-STAT OW2018-11-27 12:26:00 Test Item Value Reference Range Interpretation Comments PT (test code = 12.0 s 10.0-13.0 PT1) INR (test code = 1.0 INR) INRH (test code = SUGGESTED INRH) THERAPEUTIC RANGE FOR INR: 2.5 - 3.5 For Patients with Prosthetic Valves or Patients with recurrent Thromboembolic Events 2.0 - 3.0 For Most Other Applications
[2020-03-29] MEDS ORDERED: ONDANSETRON 4 MG/2 ML VIAL ONE (21:29)
[2020-03-29] MEDS ORDERED: NA CHLORIDE 0.9% 1,000 ML ONE (21:29)
[2020-03-29] MEDS ORDERED: HYDRALAZINE HCL 20 MG/ML VIAL ONE (21:31)
[2020-03-29 21:40] LABS: Absolute Lymphocytes (CBC) 2.6 K/uL (0.7-4.9); Hematocrit 41.9 % (36.0-45.0); Lymphocytes % 25.3 % (15.3-44.8); RBC Red Blood Cell Count 5.12 M/uL (3.86-4.86)
[2020-03-29 21:55] LABS: ALT/SGPT 20 U/L (12-78); AST/SGOT 15 U/L (15-37); Albumin 3.9 g/dL (3.4-5.0); Alkaline Phosphatase 81 U/L (45-117); BUN Blood Urea Nitrogen 19 mg/dL (7-18); Bicarbonate 29 mmol/L (21-32); Bilirubin Direct < 0.1 mg/dL (0-0.2); Bilirubin Total 0.5 mg/dL (0.2-1.0); Glucose Level 129 mg/dL (74-106); Lipase 174 U/L (73-393); Potassium 3.8 mmol/L (3.5-5.1); Protein, Total 7.6 g/dL (6.4-8.2); Sodium Level 141 mmol/L (136-145)
[2020-03-29] MEDS ORDERED: LORAZEPAM 0.5 MG TABLET ONE (22:06)
[2020-03-29] MEDS ORDERED: MORPHINE 4 MG/ML SYR ONE (22:06)
[2020-03-29] MEDS ORDERED: FENTANYL CITR 100 MCG/2 ML ONE (22:11)
--- NOTE | 2020-03-29 23:51 | EDPHYS ---
Physician Documentation [facility] Name: Angie Boggs Age: 74 yrs Sex: Female : 1945 Arrival Date: 03/29/2020 Time: 18:47 Bed 23 Private MD: ED Physician Sebastian Quintero HPI: 03/30 00:57 This 74 yrs old Black Female presents to ER via Ambulatory with complaints of Abdominal tw4 Pain, Nausea. 00:57 The patient presents to the emergency department with nausea, abdominal pain. Onset: tw4 The symptoms/episode began/occurred today. Possible causes: unknown. The symptoms are aggravated by nothing. The symptoms are alleviated by nothing. Associated signs and symptoms: Pertinent positives: nausea. Severity of symptoms: At their worst the symptoms were moderate in the emergency department the symptoms are unchanged. The patient has not experienced similar symptoms in the past. Historical: - Allergies: 03/29 19:03 No Known Allergies; ll1 - PMHx: 19:03 Hypertension; GERD; Myocardial infarction; ll1 - PSHx: 19:03 Heart stents; pacemaker; ll1 - Immunization history:: Flu vaccine is not up to date. - Social history:: Smoking status: Patient denies any tobacco usage or history of. ROS: 03/30 00:57 Abdomen/GI: Positive for tw4 00:57 Constitutional: Negative for fever, chills, and weight loss, Eyes: Negative for injury, tw4 pain, redness, and discharge, Cardiovascular: Negative for chest pain, palpitations, and edema, Respiratory: Negative for shortness of breath, cough, wheezing, and pleuritic chest pain, Back: Negative for injury and pain, MS/Extremity: Negative for injury and deformity, Skin: Negative for injury, rash, and discoloration, Neuro: Negative for headache, weakness, numbness, tingling, and seizure. 00:57 Abdomen/GI: Positive for abdominal pain, nausea. Exam: 00:57 Constitutional: This is a well developed, well nourished patient who is awake, alert, tw4 and in no acute distress. Head/Face: Normocephalic, atraumatic. Chest/axilla: Normal chest wall appearance and motion. Nontender with no deformity. No lesions are appreciated. Cardiovascular: Regular rate and rhythm with a normal S1 and S2. No gallops, murmurs, or rubs. Normal PMI, no JVD. No pulse deficits. Respiratory: Lungs have equal breath sounds bilaterally, clear to auscultation and percussion. No rales, rhonchi or wheezes noted. No increased work of breathing, no retractions or nasal flaring. Back: No spinal tenderness. No costovertebral tenderness. Full range of motion. Skin: Warm, dry with normal turgor. Normal color with no rashes, no lesions, and no evidence of cellulitis. MS/ Extremity: Pulses equal, no cyanosis. Neurovascular intact. Full, normal range of motion. Neuro: Awake and alert, GCS 15, oriented to person, place, time, and situation. Cranial nerves II-XII grossly intact. Motor strength 5/5 in all extremities. Sensory grossly intact. Cerebellar exam normal. Normal gait. 00:57 Abdomen/GI: Inspection: abdomen appears normal, Bowel sounds: normal, Palpation: moderate abdominal tenderness, in the epigastric area. Vital Signs: 03/29 18:59 BP 199 / 88; Pulse 80; Resp 17; Temp 98.3; Pulse Ox 99% ; Weight 99.79 kg; Height 5 ft. ll1 7 in. (170.18 cm); Pain 8/10; 20:59 BP 215 / 73; Pulse 80; Resp 16 S; Temp 98.2(O); Pulse Ox 98% on R/A; Pain 7/10; bb 22:00 BP 201 / 84; Pulse 82; Resp 16; Pulse Ox 98% on R/A; vg1 22:30 BP 191 / 84; Pulse 90; Resp 16; Pulse Ox 99% on R/A; vg1 23:00 BP 175 / 80; Pulse 90; Resp 18; Pulse Ox 97% on R/A; vg1 18:59 Body Mass Index 34.46 (99.79 kg, 170.18 cm) ll1 MDM: 21:01 Patient medically screened. tw4 03/30 00:59 Data reviewed: vital signs, nurses notes. Data reviewed: lab test result(s), radiologic tw4 studies, ultrasound. Data interpreted: Pulse oximetry: Interpretation: normal. Test interpretation: by ED physician or midlevel provider: ECG. Counseling: I had a detailed discussion with the patient and/or guardian regarding: the historical points, exam findings, and any diagnostic results supporting the discharge/admit diagnosis. 03/29 21:01 Order name: Basic Metabolic Panel; Complete Time: 21:58 tw4 03/29 21:58 Interpretation: Normal except: GLUC 129; BUN 19; GFR 61. tw4 03/29 21:01 Order name: CBC with Diff; Complete Time: 21:58 tw4 03/29 21:58 Interpretation: Normal except: RBC 5.12; RDW 15.5. tw4 03/29 21:01 Order name: Hepatic Function; Complete Time: 21:58 tw4 03/29 21:01 Order name: Lipase; Complete Time: 21:58 tw4 03/29 21:24 Order name: US Abdomen Limited tw4 03/29 21:01 Order name: IV Saline Lock; Complete Time: 21:32 tw4 03/29 22:38 Order name: EKG; Complete Time: 22:54 tw4 03/29 21:01 Order name: Labs collected and sent; Complete Time: 21:32 tw4 EC:54 Rate is 91 beats/min. Rhythm is regular. QRS B[place] is Normal. NE interval is normal. QRS tw4 interval is normal. QT interval is normal. No Q waves. T waves are Inverted in leads II, aVF, V4, V5, V6. No ST changes noted. Clinical impression: NSR w/ Non-specific ST/T Changes. Interpreted by me. Reviewed by me. Administered Medications: 03/29 21:31 Drug: NS 0.9% 1000 ml Route: IV; Rate: 1 bolus; Site: right antecubital; vg1 23:06 Follow up: IV Status: Completed infusion vg02 25: Drug: Zofran (Ondansetron) 4 mg Route: IVP; Site: right antecubital; vg1 23:06 Follow up: Response: No adverse reaction vg1 :31 Drug: hydrALAZINE 20 mg Route: IV; Rate: bolus; Site: right antecubital; vg1 23:07 Follow up: Response: Blood sugar is lowered vg03/30 00:02 Follow up: IV Status: Completed infusion 1 03/29 21:46 CANCELLED (wrong route): Ativan 0.5 mg IVP once vg1 21:56 Drug: Ativan 0.5 mg Route: PO; vg1 23:07 Follow up: Response: No adverse reaction vg1 21:57 CANCELLED (Patient Refused): morphine 4 mg IVP once; RASS on ADMIN: Combtv4, Very vg1 Agttd3, Agttd2, Rstlss1, AlertClm0, Drwsy-1, Lt Sdtn-2, Mod Sdtn-3, Dp Sdtn-4, UnArsble-5 21:57 Drug: fentaNYL (PF) 25 mcg {Note: rass1.} Route: IVP; Site: right antecubital; vg1 23:07 Follow up: Response: Pain is decreased vg1 23:52 Follow up: Response: No adverse reaction; Pain is decreased vg1 Disposition: 03/29/20 23:50 Discharged to Home. Impression: Epigastric abdominal tenderness, Gastritis, unspecified. - Condition is Stable. - Discharge Instructions: Abdominal Pain, Adult, Gastritis, Adult, [id number]. - Prescriptions for Carafate 1 gram Oral Tablet - take 1 tablet by ORAL route 4 times per day take on an empty stomach, beginning on waking and last dose at bedtime; 100 tablet. - Medication Reconciliation Form, Thank You Letter, Antibiotic Education, Prescription Opioid Use form. - Follow up: Private Physician; When: Upon discharge from the Emergency Department; Reason: Recheck today's complaints, Continuance of care, Re-evaluation by your physician. - Problem is an ongoing problem. - Symptoms have improved. Signatures: Dispatcher [employer] EDMS Sebastian Quintero MD MD tw4 Teressa Umana RN RN vg1 Julissa Yeboah RN RN ll1 Corrections: (The following items were deleted from the chart) 21:46 21:32 Ativan 0.5 mg IVP once ordered. vg1 vg1 21:46 21:46 Ativan 0.5 mg IVP once ordered. vg1 vg1 21:57 21:24 morphine 4 mg IVP once; RASS on ADMIN: Combtv4, Very Agttd3, Agttd2, Rstlss1, vg1 AlertClm0, Drwsy-1, Lt Sdtn-2, Mod Sdtn-3, Dp Sdtn-4, UnArsble-5 ordered. tw4 21:57 21:57 morphine 4 mg IVP once; RASS on ADMIN: Combtv4, Very Agttd3, Agttd2, Rstlss1, vg1 AlertClm0, Drwsy-1, Lt Sdtn-2, Mod Sdtn-3, Dp Sdtn-4, UnArsble-5 ordered. vg1 03/30 00:03 03/29 23:50 03/29/2020 23:50 Discharged to Home. Impression: Epigastric abdominal vg1 tenderness; Gastritis, unspecified. Condition is Stable. Forms are Medication Reconciliation Form, Thank You Letter, Antibiotic Education, Prescription Opioid Use. Follow up: Private Physician; When: Upon discharge from the Emergency Department; Reason: Recheck today's complaints, Continuance of care, Re-evaluation by your physician. Problem is an ongoing problem. Symptoms have improved. tw4 03/30 00:57 00:54 Constitutional: This is a well developed, well nourished patient who is awake, tw4 alert, and in no acute distress. Head/Face: Normocephalic, atraumatic. Chest/axilla: Normal chest wall appearance and motion. Nontender with no deformity. No lesions are appreciated. Cardiovascular: Regular rate and rhythm with a normal S1 and S2. No gallops, murmurs, or rubs. Normal PMI, no JVD. No pulse deficits. Respiratory: Lungs have equal breath sounds bilaterally, clear to auscultation and percussion. No rales, rhonchi or wheezes noted. No increased work of breathing, no retractions or nasal flaring. Abdomen/GI: Soft, non-tender, with normal bowel sounds. No distension or tympany. No guarding or rebound. No evidence of tenderness throughout. Back: No spinal tenderness. No costovertebral tenderness. Full range of motion. MS/ Extremity: Pulses equal, no cyanosis. Neurovascular intact. Full, normal range of motion. Neuro: Awake and alert, GCS 15, oriented to person, place, time, and situation. Cranial nerves II-XII grossly intact. Motor strength 5/5 in all extremities. Sensory grossly intact. Cerebellar exam normal. Normal gait. tw4
--- NOTE | 2020-03-29 23:51 | ER ---
Nurse's Notes [facility] Name: Angie Boggs Age: 74 yrs Sex: Female : 1945 Arrival Date: 03/29/2020 Time: 18:47 Bed 23 Private MD: Diagnosis: Epigastric abdominal tenderness;Gastritis, unspecified Presentation: 03/29 18:59 Chief complaint: Patient states: Epigastric pain with N/V off/on since December. Had a ll1 scope last week, just got sicker since. No fever. Coronavirus screen: Client denies travel out of the [place] in the last 14 days. At this time, the client does not indicate any symptoms associated with coronavirus-19. Ebola Screen: Patient denies travel to an Ebola-affected area in the 21 days before illness onset. Initial Sepsis Screen: Does the patient meet any 2 criteria? No. Patient's initial sepsis screen is negative. Does the patient have a suspected source of infection? Yes: Acute abdominal pain. Risk Assessment: Do you want to hurt yourself or someone else? Patient reports no desire to harm self or others. Onset of symptoms was December 21, 2019. 18:59 Method Of Arrival: Ambulatory ll1 18:59 Acuity: ADAM 3 ll1 Historical: - Allergies: 19:03 No Known Allergies; ll1 - PMHx: 19:03 Hypertension; GERD; Myocardial infarction; ll1 - PSHx: 19:03 Heart stents; pacemaker; ll1 - Immunization history:: Flu vaccine is not up to date. - Social history:: Smoking status: Patient denies any tobacco usage or history of. Screenin:59 Abuse screen: Denies threats or abuse. Nutritional screening: No deficits noted. bb Tuberculosis screening: No symptoms or risk factors identified. Fall Risk None identified. Assessment: 20:59 General: Appears uncomfortable, obese, Behavior is calm, cooperative. Pain: Complains bb of pain in epigastric area Pain currently is 7 out of 10 on a pain scale. Pain began today. Neuro: Level of Consciousness is awake, alert, obeys commands, Oriented to person, place, time, situation. Cardiovascular: Capillary refill < 3 seconds Patient's skin is warm and dry. Respiratory: Airway is patent Respiratory effort is even, unlabored, Respiratory pattern is regular. GI: Bowel sounds present X 4 quads. Abd is soft X 4 quads Abdomen is tender to palpation in epigastric area Reports diarrhea, nausea. Derm: Skin is dry, Skin is normal, Skin temperature is warm. Musculoskeletal: Circulation, motion, and sensation intact. 21:44 Reassessment: Received VO from Dr Quintreo to administer 0.5 mg of Ativan POx1. vg1 21:50 Reassessment: Received VO from Dr Quintero to administer 25 mcg of Fentanyl IVP x1. vg1 23:06 Reassessment: Patient appears in no apparent distress at this time. Patient and/or vg1 family updated on plan of care and expected duration. Pain level reassessed. Patient is alert, oriented x 3, equal unlabored respirations, skin warm/dry/pink. Rated ABD pain 2/10 Patient states feeling better. Vital Signs: 18:59 BP 199 / 88; Pulse 80; Resp 17; Temp 98.3; Pulse Ox 99% ; Weight 99.79 kg; Height 5 ft. ll1 7 in. (170.18 cm); Pain 8/10; 20:59 BP 215 / 73; Pulse 80; Resp 16 S; Temp 98.2(O); Pulse Ox 98% on R/A; Pain 7/10; bb 22:00 BP 201 / 84; Pulse 82; Resp 16; Pulse Ox 98% on R/A; vg1 22:30 BP 191 / 84; Pulse 90; Resp 16; Pulse Ox 99% on R/A; vg1 23:00 BP 175 / 80; Pulse 90; Resp 18; Pulse Ox 97% on R/A; vg1 18:59 Body Mass Index 34.46 (99.79 kg, 170.18 cm) ll1 ED Course: 18:47 Patient arrived in ED. mr 19:01 Triage completed. ll1 19:03 Arm band placed on. ll1 20:59 Ashley Wilder, NAOMI is Primary Nurse. bb 20:59 Patient has correct armband on for positive identification. Placed in gown. Bed in low bb position. Call light in reach. Side rails up X 1. Pulse ox on. NIBP on. Warm blanket given. 21:00 Primary Nurse role handed off by Ashley Wilder, RN vg1 21:00 Teressa Umana, NAOMI is Primary Nurse. vg1 21:01 Sebastian Quintero MD is Attending Physician. tw4 21:32 Initial lab(s) drawn, by me, sent to lab. Inserted saline lock: 22 gauge in right vg1 antecubital area, using aseptic technique. Blood collected. 21:59 US at bedside. vg1 22:21 US Abdomen Limited In Process Unspecified. EDMS 23:43 EKG done, by ED staff, reviewed by Sebastian Quintero MD. vg1 03/30 00:02 No provider procedures requiring assistance completed. IV discontinued, intact, vg1 bleeding controlled, No redness/swelling at site. Pressure dressing applied. Administered Medications: 03/29 21:31 Drug: NS 0.9% 1000 ml Route: IV; Rate: 1 bolus; Site: right antecubital; vg1 23:06 Follow up: IV Status: Completed infusion vg1 21:31 Drug: Zofran (Ondansetron) 4 mg Route: IVP; Site: right antecubital; vg1 23:06 Follow up: Response: No adverse reaction vg1 21:31 Drug: hydrALAZINE 20 mg Route: IV; Rate: bolus; Site: right antecubital; vg1 23:07 Follow up: Response: Blood sugar is lowered vg1 03/30 00:02 Follow up: IV Status: Completed infusion vg1 03/29 21:46 CANCELLED (wrong route): Ativan 0.5 mg IVP once vg1 21:56 Drug: Ativan 0.5 mg Route: PO; vg1 23:07 Follow up: Response: No adverse reaction vg1 21:57 CANCELLED (Patient Refused): morphine 4 mg IVP once; RASS on ADMIN: Combtv4, Very vg1 Agttd3, Agttd2, Rstlss1, AlertClm0, Drwsy-1, Lt Sdtn-2, Mod Sdtn-3, Dp Sdtn-4, UnArsble-5 21:57 Drug: fentaNYL (PF) 25 mcg {Note: rass1.} Route: IVP; Site: right antecubital; vg1 23:07 Follow up: Response: Pain is decreased vg1 23:52 Follow up: Response: No adverse reaction; Pain is decreased vg1 Outcome: 23:50 Discharge ordered by . tw4 03/30 00:02 Discharged to home via wheelchair. vg1 Condition: stable Discharge instructions given to patient, Instructed on discharge instructions, follow up and referral plans. medication usage, Demonstrated understanding of instructions, follow-up care, medications, Prescriptions given X 1. 00:03 Patient left the ED. vg1 Signatures: Dispatcher [employer] Tatiana SerranoAshley, RN RN Sebastian Nelson MD MD tw4 Teressa Umana RN RN vg1 Julissa Yeboah RN RN ll1 Corrections: (The following items were deleted from the chart) 03/29 21:47 21:44 Reassessment: Received VO from Dr Quintero to administer 0.5 mg of Ativan IVP x1. vg1 vg1
[2020-03-30 03:09] VITALS: TEMP 98.2
[2020-03-30 03:13] VITALS: BP 175/80; O2SAT 97
--- NOTE | 2020-03-30 14:06 | RAD REPORT ---
EXAM DESCRIPTION: US - Abdomen Exam Limited - 03/29/2020 10:21 pm CLINICAL HISTORY: Abdominal pain. COMPARISON: None. FINDINGS: The gallbladder wall is not thickened. A gallstone is not seen. The biliary tree is normal caliber. IMPRESSION: Unremarkable gallbladder ultrasound.
--- NOTE | 2020-03-30 23:59 | EKG ---
Test Date: 2020-03-29 Test Time: 23:24:44 Credit Interviewer: MIGNON MEASUREMENT RESULTS: Intervals: Rate: 91 CA: 154 QRSD: 82 QT: 372 QTc: 457 [place]: P: 87 CA: 154 QRS: 76 T: 49 INTERPRETIVE STATEMENTS: Normal sinus rhythm Inferior infarct, age undetermined Cannot rule out Anterior infarct, age undetermined T wave abnormality, consider lateral ischemia Abnormal ECG No previous ECG available for comparison Electronically Signed On 03-30-20 23:57:48 FIELD SALES MANAGER by Mack Rose
== END 2020-03-30 00:03 | disposition home or self-care (01) ==
LOC: ER 18:43
DX: K29.70 Gastritis, unspecified, without bleeding (principal); I10 Essential (primary) hypertension; Z95.0 Presence of cardiac pacemaker; Z95.818 Presence of other cardiac implants and grafts
CPT/HCPCS: 96365; 93005; 85025; 80048; 36415; 80076; 83690; 76705; 96375; 99284; 96366; J0360; J3010; J7030; J2405

== ENCOUNTER → 2023-12-18 | Day surgery (SDC) | payer OTHER ==
--- NOTE | 2023-12-14 11:34 | RAD REPORT ---
EXAMINATION: TWO VIEW CHEST XR CLINICAL INDICATION: Pre-op pending hip replacement TECHNIQUE: 2 views of the chest was performed. COMPARISON: No prior exam. FINDINGS: The lungs are hyperexpanded suggesting COPD. The heart is upper limit of normal in size. No displaced fractures evident. Multilead pacer/defibrillator device present. IMPRESSION: Mild COPD. The USPSTF recommends annual screening for lung cancer with low-dose computed tomography (LDCT) in ad ults aged 50 to 80 years who have a 20 pack-year smoking history and currently smoke or have quit within the past 15 years. Screening should be discontinued once a person has not smoked for 15 years or develops a health problem that substantially limits life expectancy or the ability or willingness to have curative lung surgery.
[2023-12-14 11:37] LABS: Absolute Basophils 0.1 K/uL (0-0.5); Absolute Eosinophils 0.2 K/uL (0-0.5); Absolute Monocytes 0.7 K/uL (0.1-1.3); Basophils % 1.1 % (0-1.3); Eosinophils % 2.8 % (0-4.4); Hematocrit 44.1 % (36.0-45.0); Lymphocytes % 24.9 % (15.3-44.8); MCH 26.1 pg (27.0-35.0); MCHC 31.8 g/dL (32.0-36.0); MCV 82.1 fL (80-100); MPV 9.5 fL (7.6-11.3); Monocytes % 8.7 % (3.3-12.3); Neutrophils % 62.5 % (41.7-73.7); Platelets 226 thou/uL (152-406); RBC Red Blood Cell Count 5.37 M/uL (3.86-4.86)
[2023-12-14 11:40] LABS: PT Prothrombin Time 10.4 SECONDS (9.4-12.5); Protime INR 0.93
[2023-12-14 11:45] LABS: Urine Color Light-Yellow (Yellow)
[2023-12-14 11:46] LABS: Specific Gravity 1.016 (1.005-1.030); Urine Bilirubin NEGATIVE (Negative); Urine Blood Negative (Negative); Urine Clarity Clear (Clear); Urine Glucose NEGATIVE (Negative); Urine Ketones NEGATIVE (Negative); Urine Microscopic Reflex YN NO UMIC; Urine Nitrite Negative (Negative); Urine Protein NEGATIVE (Negative); Urine RBC <5 /HPF (None Seen); Urine Urobilinogen Normal mg/dL (0.2-1.0); Urine WBC <5 /HPF (<5)
[2023-12-14 11:53] LABS: ALT/SGPT 19 U/L (13-56); Albumin 3.3 g/dL (3.4-5.0); Albumin/Globulin Ratio 0.9 (1.1-1.8); Alkaline Phosphatase 76 U/L (45-117); BUN Blood Urea Nitrogen 25 mg/dL (7-18); Bicarbonate 27 mEq/L (21-32); Bilirubin Total 0.2 mg/dL (0.2-1.0); Globulin 3.7 g/dL (2.3-3.5); Glomerular Filtration Rate 49 ml/min (=/>90); Glucose Level 74 mg/dL (74-106); Sodium Level 143 mEq/L (136-145)
[2023-12-14 12:09] LABS: AST/SGOT < 10 U/L (15-37)
[~2023-12-18] MED LIST: BUPIVACAINE 0.75% (PF) 2 ML SP ONE; DEXMEDETOMIDINE HCL 200 MCG/2 ML VIAL ONE; DOCUSATE NA 100 MG CAP PO PRN; EPINEPHRINE 1 MG/ML VIAL ONE; FENTANYL CITR 100 MCG/2 ML ONE; HOME MED 1 EA UNK (Glimepiride [Glimepiride] 1 MG Tablet) PO SCH; HOME MED 1 EA UNK (Hydralazine Hcl [Hydralazine Hcl] 100 MG Tablet) PO SCH; KETAMINE HCL IN 0.9 % NACL 50 MG/5 ML SYRINGE IV ONE; LIDOCAINE 1% MPF 5 ML VIAL ONE; LIDOCAINE 2% MPF 5 ML VIAL ONE; MAGNESIUM SULFATE 1 gm IVPB 1 GM/100 ML BAG IV ONE; MIDAZOLAM HCL 2 MG/2 ML INJ ONE; MORPHINE SULFATE/PF 1 MG/ML (10 ML AMP) ONE; NS 0.9% VIAL 10 ML ONE; ONDANSETRON 4 MG/2 ML VIAL IV PRN; ONDANSETRON 4 MG/2 ML VIAL ONE; Phenylephrine HCl 10 MG/ML 1 ML VIAL ONE; ROPIVACAINE HCL 20 ML ONE; dexAMETHasone 10 MG/ML VIAL ONE
[2023-12-18] MEDS: TRANEXAMIC ACID 1,000 MG/10 ML VIAL IV ONE (06:19)
[2023-12-18] MEDS: NA CHLORIDE 0.9% 1,000 ML ONE ×2 (06:50→08:18)
[2023-12-18] MEDS: GABAPENTIN 100 MG CAP ONE (06:54)
[2023-12-18] MEDS: ACETAMINOPHEN 500 MG TAB ONE (06:54)
[2023-12-18] MEDS: Oxycodone HCl/Acetaminophen 5/325 MG TAB ONE (06:55)
[2023-12-18] MEDS: CEFAZOLIN SODIUM 2 GM/VIAL ONE (07:13)
--- NOTE | 2023-12-18 09:34 | P.BOP ---
Preoperative diagnosis: right hip severe arthritis Postoperative diagnosis: same Primary procedure: right total hip arthoplasty Estimated blood loss: 100ccs Anesthesia: General Transferred to: Recovery Room Condition: Good
--- NOTE | 2023-12-18 10:06 | RAD REPORT ---
EXAM:Hip Right 1 View HISTORY: TOTAL HIP COMPARISON: None IMPRESSION: Single intraoperative radiograph from a right hip arthroplasty.
--- NOTE | 2023-12-18 10:14 | OP ---
Date of Procedure: 12/18/2023 Surgeon: Luis Preciado MD Preoperative Diagnosis: Severe right hip arthritis. Postoperative Diagnosis: Severe right hip arthritis. Procedure: Right total hip arthroplasty using the [place] system. Estimated Blood Loss: 100 cc. Complications: There were no complications. Indications For Operation: Ms. Boggs is a 78-year-old female who has been suffering from debilitat ing hip pain for quite some time. X-rays demonstrated subluxation and destruction of the hip and she has pain with any motion of the hip or weightbearing. Risks, benefits, and alternatives to this pro cedure had been discussed with the patient. She states she understands things as presented and wishe s to proceed. Description Of Procedure: The patient was taken to the operating room. Spinal anesthesia was obtain ed by the Anesthesia staff. Following this, general anesthesia was obtained and she was rolled left side down with an axillary roll with her bony prominences being checked and properly positioned using hip positioners. After this, the right lower extremity was then prepped and draped in the usual toro rile fashion for the procedure and a standard posterior lateral incision was taken down carefully thr ough skin and soft tissue. There was quite a bit of adipose tissue and meticulous hemostasis was joo ntained using Bovie electrocautery. This led down to the fascia. A small stab wound was made in the fascia and the fascial incision was taken up proximally till near the tip of the greater trochanter. The gluteus henry muscle was then split using finger pressure. The sciatic nerve was palpated an d protected as the Charnley was then placed. The external rotators and capsule were then removed fro m the femur and tagged for later repair. The head was then examined. There was found to be very lar ge osteophytes on both the femoral neck as well as the acetabular rim. The neck osteophytes are gent ly debrided as the hip was dislocated. Some of the acetabular osteophytes were removed as well. A n chaz cut was made, which was slightly lower than standard to accommodate for the large osteophytes and acetabular retractors were carefully placed. Soft tissue was removed from the acetabulum and the os teophytes of the acetabulum were further removed. Head was sized with ring gauges. The acetabulum w as then sequentially reamed up to a size 49 and appeared to have good bleeding bone. There was a henny y small central osteophyte, but it was felt that deepening would not be that beneficial and may limit our coverage with regard to the thickness of the phillips. Therefore, a size 50 was selected. It was then placed in standard fashion. Attention was then turned to the femur. lacing cutter was used to lat eralize. This was followed by the canal-finding reamer. It was then broached to a size 3 and x-rays were taken, at this point, which demonstrates good position and seating of the cup as well as approp riate size of the femur. After this, a standard femur was then placed and it was then trialed with t he +8. +8 appeared to be a little bit loose. Therefore, decision was made to remove the standard st em and place a high offset stem, which gives a little more stability with our construct. This was th en trialed with a +3. +3 was a little loose than the trial of +8. With +8, she can turn to full fle xion, adduction, and internal rotation to at least 40 degrees. This was selected as the final constr uct and the final ball was then tapped in place. It was then relocated and was found to be stable in the above areas. The wound was copiously irrigated and the external rotators were repaired back via bone tunnels. This was followed by closure of the fascia in a watertight fashion followed by irriga tion and closure of skin using Vicryl followed by martha. Patient was then placed in [facility], awakened, and taken to recovery room in good condition. There were no complications. SE/MODL Voice ID: [id number] Report ID: [id number]
[2023-12-18 10:15] LABS: Hematocrit 37.9 % (36.0-45.0); Hemoglobin 12.3 g/dL (12.0-15.0)
[2023-12-18 12:10] VITALS: BMI 35.9
[2023-12-18] MEDS: CEFAZOLIN 1 GM in NA CHLORIDE 0.9% 50 ML IVPB SCH (16:10)
[2023-12-18 17:18] LABS: Hemoglobin 13.2 g/dL (12.0-15.0)
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
[2023-12-18] MEDS: HYDRALAZINE HCL 25 MG TABLET PO SCH (20:18)
[2023-12-18] MEDS: LORAZEPAM 0.5 MG TABLET PO SCH (20:19)
[2023-12-18] MEDS: ATORVASTATIN 10 MG TAB PO SCH (20:19)
[2023-12-18] MEDS: cloNIDine HCL 0.1 MG TAB PO SCH (20:19)
[2023-12-19] MEDS: HYDROCODONE/APAP 7.5/325 MG TAB PO PRN (03:42)
[2023-12-19 07:12] LABS: Hematocrit 35.3 % (36.0-45.0)
[2023-12-19 07:13] LABS: Hemoglobin 11.6 g/dL (12.0-15.0)
[2023-12-19] MEDS: GLIMEPIRIDE 2 MG TABLET PO SCH (08:52)
[2023-12-19] MEDS: CLOPIDOGREL 75 MG TABLET PO SCH (08:52)
[2023-12-19] MEDS: ENOXAPARIN 40 MG/0.4 ML SQ SCH (08:52)
[2023-12-19] MEDS: DRISDOL (VITAMIN D=ERGOCALCIFEROL) 50000 UNIT CAP PO SCH (08:52)
[2023-12-19 18:18] VITALS: TEMP 98.1
[2023-12-19 20:04] VITALS: BP 196/95
[2023-12-19 21:06] VITALS: O2SAT 95
== END | disposition home or self-care (01) ==
LOC: OR 06:00 → 4TH 11:58
PROVIDERS: ATTEND Orthopaedic Surgery
PROC: 0SR90JA Replacement of Right Hip Joint with Synthetic Substitute, Uncemented, Open Approach (ICD-10-PCS; principal; 2023-12-18 07:00)
DX: M16.11 Unilateral primary osteoarthritis, right hip (principal); E78.00 Pure hypercholesterolemia, unspecified; R73.03 Prediabetes; I25.2 Old myocardial infarction
CPT/HCPCS: 85025; 36415 ×2; 85610; 82947 ×5; 88305; 88311; 85730; 85018 ×2; 85014 ×2; 81003; 80053; 71046; 73501; 97116; 97162; 97530 ×2; 27130; C1776; J2704; J3475; A4216; J2003 ×4; J2371; J2250; J3010; J1100; J0171 ×2; J2405; J7030 ×2; J0690; 88304; 94760